=== PATIENT | male | born 1950 ===

== ENCOUNTER 2020-10-21 12:44 | Emergency (ER) | payer MEDICARE, OTHER ==
[2020-10-21] MEDS ORDERED: HYDROcodone/Acetaminophen 5/325 mg Tablet ONE (13:30)
[2020-10-21] MEDS ORDERED: Ketorolac Tromethamine 30 MG/ML VIAL ONE (13:30)
[2020-10-21] MEDS ORDERED: Lidocaine 1% w/Epinephrine 1:100K 20 ML VIAL ONE (14:40)
[2020-10-21] MEDS ORDERED: Bacitracin 1 PK ONE (15:31)
== END 2020-10-21 15:40 | disposition home or self-care (01) ==
LOC: ERS 12:44
DX: S51.811A Laceration without foreign body of right forearm, initial encounter (principal); E78.5 Hyperlipidemia, unspecified; E78.00 Pure hypercholesterolemia, unspecified; I10 Essential (primary) hypertension; W31.9XXA Contact with unspecified machinery, initial encounter
CPT/HCPCS: 12002; 96374; J1885